=== PATIENT | male | born 1980 | race Caucasian/White ===

== ENCOUNTER 2023-09-27 03:56 | Emergency (ER) | payer SELFPAY ==
[~2023-09-27] VITALS: Ht 165.1 cm; Wt 78.0 kg
[2023-09-27 04:03] VITALS: TEMP 97.7; O2SAT 99
[2023-09-27 04:27] LABS: BASOPHILS % 0.5 % (0.0-2.0); EOSINOPHILS % 0.4 % (0.0-5.0); HEMATOCRIT. 39.5 % (42.0-52.0); HEMOGLOBIN. 13.1 g/dL (14.0-18.0); LYMPHOCYTES % 37.2 % (20.0-50.0); MEAN CORPUSCULAR HEMOGLOBIN 26.8 pg (28.0-32.0); MEAN CORPUSCULAR HGB CONC 33.3 g/dL (31.0-37.0); MEAN CORPUSCULAR VOLUME 80.7 fL (80.0-94.0); MONOCYTES % 4.1 % (2.0-8.0); NEUTROPHILS % 57.8 % (40.0-76.0); PLATELET 389 x1000/uL (130-400); RED CELL DISTRIBUTION WIDTH 14.9 % (11.6-14.6); WHITE BLOOD COUNT 10.2 x1000/uL (4.5-11.0)
[2023-09-27 04:37] LABS: INR 0.9; PROTHROMBIN TIME 10.5 sec (9.6-11.0)
[2023-09-27 04:39] LABS: CARBON DIOXIDE 24 mEq/L (21-32); CHLORIDE 106 mEq/L (98-107); POTASSIUM 3.4 mEq/L (3.5-5.1); SODIUM 137 mEq/L (136-145)
[2023-09-27 04:40] LABS: CALCIUM 8.8 mg/dL (8.7-10.4)
[2023-09-27 04:44] LABS: CREATININE 0.7 mg/dL (0.6-1.3)
[2023-09-27 04:45] LABS: ETHANOL BLOOD 165 mg/dL (<10); GLUCOSE 105 mg/dL (70-105); UREA NITROGEN BLOOD 9 mg/dL (9-23)
[2023-09-27 04:46] LABS: ALANINE AMINOTRANSFERASE 22 IU/L (10-49); ALBUMIN 4.8 g/dL (3.2-4.8); ASPARTATE AMINOTRANSFERASE 32 IU/L (<34)
[2023-09-27 04:47] LABS: BILIRUBIN DIRECT 0.2 mg/dL (<=3.0); BILIRUBIN TOTAL 0.9 mg/dL (0.1-1.0); PROTEIN TOTAL 7.4 g/dL (6.0-8.3)
[2023-09-27] MEDS ORDERED: MAGNESIUM/ALUMINUM HYDROXIDE/SIMETHICONE 30ML UDC PO STA (05:19)
[2023-09-27] MEDS ORDERED: ONDANSETRON 4MG ODT PO STA (05:19)
[2023-09-27 05:48] VITALS: BP 149/90; PULSE 93; RESP 20
[2023-09-27] MEDS: DICYCLOMINE 10 MG/5 ML ORAL SYR PO STA (05:58)
[2023-09-27] MEDS: ONDANSETRON 4MG ODT PO NR (05:58)
[2023-09-27] MEDS: MAGNESIUM/ALUMINUM HYDROXIDE/SIMETHICONE 30ML UDC PO NR (05:58)
[2023-09-27] MEDS: FAMOTIDINE 20MG TABLET PO ONE (05:59)
[2023-09-27] MEDS ORDERED: ONDA4TAB11 PO (06:37)
[2023-09-27] MEDS ORDERED: FAMO-135 MT (06:37)
== END 2023-09-27 07:00 | disposition home or self-care (01) ==
LOC: ER 03:56
DX: K29.20 Alcoholic gastritis without bleeding (principal); R10.13 Epigastric pain; Y90.6 Blood alcohol level of 120-199 mg/100 ml
CPT/HCPCS: 80076; 80048; 80320; 83690; 85025; 85610; 36415; 99284; Q0162; G0480